=== PATIENT | female | born 1975 | race Caucasian/White ===

== ENCOUNTER 2025-03-02 06:00 | Day surgery (SDC) | payer OTHER ==
[2025-02-24 10:44] LABS: BASO % 0.4 % (0.1-1.2); EOS # 0.13 (0.04-0.54); EOS % 1.6 % (0.7-7.0); LYMPH # 2.40 (1.18-3.74); LYMPH % 29.6 % (19.3-53.1); MEAN PLATELET VOLUME 11.00 fl (9.4-12.4); MONO # 0.53 (0.24-0.82); MONO % 6.5 % (4.7-12.5); NEUT # 4.99 (1.56-6.13); NEUT % 61.7 % (34.0-71.1); RED CELL DISTRIBUTION WIDTH 14.6 % (11.6-14.4)
[2025-02-24 10:49] VITALS: BP 119/75
[2025-02-24 11:12] LABS: ALT/SGPT 49.0 U/L (12-78); AST/SGOT 13.0 U/L (15-37); BILIRUBIN TOTAL 0.44 mg/dL (0.3-1.2); BUN CREA RATIO 15.0 (7.0-25.0); CREATININE SERUM 0.52 mg/dL (0.55-1.02); GFR 125.33; GLOBULINA 3.9 G/DL (2.4-3.5); GLUCOSE FASTING 95.0 mg/dL (65-100); OSMOLALITY SERUM 279.0 MOSM/KG (275-295)
[2025-02-24 11:16] LABS: INR 1.01
[~2025-03-02] VITALS: Ht 157.5 cm; Wt 66.7 kg
[~2025-03-02 06:00] MED LIST: DICY20TA PO; IMODIUM A-D2 M2 PO
[2025-03-02] MEDS ORDERED: CHLORHEXIDINE GLUCONATE 120 ML BOTTLE TOP ONE (06:54)
[2025-03-02] MEDS ORDERED: POVIDONE-IODINE 118 ML BOTT TOP ONE ×2 (06:54→08:30)
[2025-03-02] MEDS ORDERED: MORPHINE SULFATE 4 MG/ML VIAL IV ONE (10:35)
== END 2025-03-02 12:50 | disposition home or self-care (01) ==
LOC: CIR.AMB 06:00
PROVIDERS: ATTEND Obstetrics & Gynecology Maternal & Fetal Medicine
DX: N84.0 Polyp of corpus uteri (principal)